=== PATIENT | male | born 1965 ===

== ENCOUNTER 2021-09-07 13:57 | Emergency (ER) | payer OTHER ==
[~2021-09-07] VITALS: Ht 170.2 cm; Wt 55.8 kg
[2021-09-07 14:01] VITALS: BP 138/65
--- NOTE | 2021-09-07 14:12 | NUR ---
PT AMBULATED TO ER BED 3
--- NOTE | 2021-09-07 14:53 | NUR ---
55 Y/O MALE BIB SELF C/O CELLULITIS TO RIGHT THIGH X 1 DAY. INFLAMMATION AND REDNESS NOTED TO RIGHT ANTERIOR THIGH. . PT STATES 7/10 ACHING PAIN ALL OVER BODY. SMALL DEPOSITS OF CALCIUM NOTED ALL OVER BODY, PINK SPOTS ALL OVER BODY. DENIES FEVER, CHILLS. DENIES MEDICATIONS PRIOR TO ARRIVAL. PMH: SCHLERODERMA, HEART-RELATED ISSUES MEDS: PLAVIX, NIFEDIPINE, ACYCLOVIR, SIDENAFIL, TRAZODONE, OMPERAZOLE, ENALAPRIL, NORCO, TEMAZEPAM, MAG ALLERGIES: ZOLEDRONIC ACID, METHOTREXATE, TOCILIZUMAB SX: 2 STENTS 04/2020;
[2021-09-07] MEDS ORDERED: KEFSUS PO (15:26)
[2021-09-07] MEDS ORDERED: SULF-59 PO (15:26)
--- NOTE | 2021-09-07 16:07 | NUR ---
Patient discharged with v/s stable. Written and verbal after care instructions given and explained. Patient alert, oriented and verbalized understanding of instructions. Ambulatory with steady gait. All questions addressed prior to discharge. ID band removed. Patient advised to follow up with PMD. Rx of KELFEX, BACRTIM DS given. Patient educated on indication of medication including possible reaction and side effects. Opportunity to ask questions provided and answered.
== END 2021-09-07 16:07 | disposition home or self-care (01) ==
LOC: MED 13:57
DX: L03.115 Cellulitis of right lower limb (principal); Z95.5 Presence of coronary angioplasty implant and graft; Z79.899 Other long term (current) drug therapy
CPT/HCPCS: 99283

== ENCOUNTER 2022-04-08 12:39 | Inpatient (IN) | payer OTHER ==
[~2022-04-08] VITALS: Ht 170.2 cm; Wt 56.4 kg
[~2022-04-08 12:39] MED LIST: KEFSUS PO; SULF-59 PO
[2022-04-08 13:05] VITALS: BP 137/68
--- NOTE | 2022-04-08 13:45 | NUR ---
Note undone in EDM - 04/08/22 at 1938 by PHSEP 56YO MALE PT C/O INCREASED SHARP 10/10 TRELL LOWER EX PAIN XTODAY. PRESENTS WITH MULTIPLE ULCERS BELOW KNEES, LARGEST NOTED TRELL BEHIND LEGS AND L HEEL. MILD ACTIVE DRAINAGE . COOL TO TOUCH, REDDENED SKIN NOTED AROUND ULCERS . STATES HAVING WEEKLY WOUND CARE W/ INITIAL ONSET BEING IN MAY 2021. DENIES N/V/D, CHEST PAIN , FEVER , CHILLS OR SOB. NON AMBUALTORY AT THIS TIME DUE TO PAIN, NORMALLY AMULATORY W/O ASSIST. PT AAOX4, RESPIRATIONS EVEN AND UNLABORED. ON PLAN EXAMINER. HX: SCLERODERMA NKA
--- NOTE | 2022-04-08 13:45 | NUR ---
56YO MALE PT C/O INCREASED SHARP 10/10 TRELL LOWER EX PAIN XTODAY. PRESENTS WITH MULTIPLE ULCERS BELOW KNEES, LARGEST NOTED TRELL BEHIND LEGS AND L HEEL. MILD ACTIVE DRAINAGE . COOL TO TOUCH, REDDENED SKIN NOTED AROUND ULCERS . STATES HAVING WEEKLY WOUND CARE W/ INITIAL ONSET BEING IN MAY 2021. DENIES N/V/D, CHEST PAIN , FEVER , CHILLS OR SOB. NON AMBUALTORY AT THIS TIME DUE TO PAIN, NORMALLY AMULATORY W/O ASSIST. PT AAOX4, RESPIRATIONS EVEN AND UNLABORED. ON CALENDER LET OFF OPERATOR. HX: SCLERODERMA
--- NOTE | 2022-04-08 14:11 | NUR ---
PT WHEELCHAIR ASSISTED TO ROOM 5
[2022-04-08 14:24] LABS: BASOPHILS % (AUTO) 0.3 % (0.0-2.0); EOSINOPHILS # (AUTO) 0.4 K/uL (0-0.4); EOSINOPHILS % (AUTO) 2.5 % (0.0-4.0); HEMATOCRIT 28.8 % (36-52); HEMOGLOBIN 9.4 g/dL (12.0-18.0); LYMPHOCYTES # (AUTO) 1.3 K/uL (2.0-11.5); LYMPHOCYTES % (AUTO) 8.5 % (20.5-51.1); MEAN CORPUSCULAR HEMOGLOBIN 28 pg (27-31); MEAN CORPUSCULAR HGB CONC 33 g/dL (33-37); MEAN CORPUSCULAR VOLUME 84.5 fL (80-94); NEUTROPHILS # (AUTO) 13.1 K/uL (1.8-7.7); NEUTROPHILS % (AUTO) 82.7 % (42.2-75.2); PLATELET COUNT (AUTO) 614 K/uL (140-450); RED CELL DISTRIBUTION WIDTH 15.5 % (11.6-13.7); WHITE BLOOD COUNT (AUTO) 15.9 K/uL (4.8-10.8)
--- NOTE | 2022-04-08 14:30 | NUR ---
56/M PRESENTS TO ED WITH C/O BILATERAL LEG WOUNDS, STATES WOUNDS HAVE BEEN ONGOING AND HAS BEEN TREATED WITH "MANY ANTIBIOTICS" BUT STATES THEY ARE NOT HEALING. PATIENT REPORTS WORSENING PAIN TODAY, DENIES RECENT INJURY OR TRAUMA, PATIENT WITH UNSTEADY GAIT UPON ARRIVAL D/T PAIN.
--- NOTE | 2022-04-08 14:35 | NUR ---
XRAY AT BEDSIDE
[2022-04-08 14:42] LABS: ALBUMIN 2.8 g/dL (3.4-5.0); ANION GAP 13.7 (8-16); CARBON DIOXIDE 28.8 mmol/L (21-32); POTASSIUM 4.5 mmol/L (3.5-5.1); TOTAL BILIRUBIN 0.2 mg/dL (0.0-1.0)
[2022-04-08] MEDS ORDERED: VANCOMYCIN 1GM/DEXT 5% PREMIX 200 ML IV ONE (14:55)
[2022-04-08] MEDS ORDERED: MORPHINE SULFATE 4 MG/ML SYR IVP ONE (14:55)
[2022-04-08] MEDS ORDERED: VANCOMYCIN PER PHARMACY MC PRN ×2 (14:55→16:15)
[2022-04-08] MEDS ORDERED: ONDANSETRON 4 MG/2 ML VIAL ONE (15:20)
[2022-04-08] MEDS ORDERED: ONDANSETRON 4 MG/2 ML VIAL IVP ONE ×2 (15:25)
--- NOTE | 2022-04-08 15:52 | NUR ---
pt's wound dressed with xeroform gauze pads and wrapped with 4" guaze rolls x3. PA notified.
[2022-04-08] MEDS ORDERED: VANCOMYCIN 1,000 MG VIAL ONE (16:07)
[2022-04-08] MEDS ORDERED: POTASSIUM CHLORIDE 10 MEQ TABER PO PRN (16:15)
[2022-04-08] MEDS ORDERED: KCL 20 MEQ/WATER INJ PREMIX 200 ML IV PRN (16:15)
[2022-04-08] MEDS ORDERED: HYDROcodone/APAP 5/325 MG 1 TAB TAB PO PRN (16:15)
[2022-04-08] MEDS ORDERED: ACETAMINOPHEN 325 MG TAB PO PRN (16:15)
[2022-04-08] MEDS ORDERED: ONDANSETRON 4 MG/2 ML VIAL IVP PRN (16:15)
[2022-04-08] MEDS ORDERED: MAG SULF 2000 MG/WATER PREMIX 50 ML IV PRN (16:15)
[2022-04-08] MEDS ORDERED: SILD20TA13 PO (16:18)
[2022-04-08] MEDS ORDERED: OMEP40EC23 PO (16:18)
[2022-04-08] MEDS ORDERED: TRAZ-471 PO (16:18)
[2022-04-08] MEDS ORDERED: ACYC-276 PO (16:18)
[2022-04-08] MEDS ORDERED: NIFE60TE79 PO (16:18)
[2022-04-08] MEDS ORDERED: MAGN250T22 PO (16:23)
[2022-04-08] MEDS ORDERED: TEMA30CA12 PO (16:23)
[2022-04-08] MEDS ORDERED: [UNRECOGNIZED DRUG - CODE] PO (16:23)
[2022-04-08] MEDS ORDERED: CHOL50005 PO (16:23)
[2022-04-08] MEDS ORDERED: [UNRECOGNIZED DRUG - CODE] PO (16:23)
[2022-04-08] MEDS ORDERED: ENAL10TA51 PO (16:23)
[2022-04-08] MEDS ORDERED: FENO145T26 PO (16:25)
[2022-04-08] MEDS ORDERED: cefTRIAXone 1,000 MG VIAL ONE (16:50)
[2022-04-08] MEDS: NACL 0.9% 1,000 ML IV SCH (17:03)
--- NOTE | 2022-04-08 19:30 | NUR ---
REPORT GIVEN TO ROLANDO MELENDREZ. TRANSFER OF CARE AT THIS TIME
[2022-04-08] MEDS: VANCOMYCIN HCL 1.25 GM in DEXTROSE 5% 250 ML IV SCH (19:35)
--- NOTE | 2022-04-08 20:03 | NUR ---
ATEMPTED TO GIVE REPORT RN UNABLE TO TAKE REPORT AT THIS TIME
--- NOTE | 2022-04-08 20:45 | NUR ---
REPORT HAS BEEN CALLED TO [facility] WAITING ON TECH TO TRANSPORT PT TO NEW ROOM
--- NOTE | 2022-04-08 20:47 | NUR ---
Patient will be admitted to care of DR. LUIS. Admited to med surg. Will go to room 119B. Belongings list completed. Report to PARVIN Pop. pt understands need for admission. all questions or concerns have been addressed.
--- NOTE | 2022-04-08 21:10 | NUR ---
RECEIVED PT FROM ER @ 2109. PT WAS BROUGHT IN FROM ED ON A GURNEY. PT IS AMBULATORY, UPPER EXTREMITIES/HAND CONSTRICTED. PT HAS GENERALIZED RASHES ALL OVER HIS BODY. PT HAS VANCOMYCIN RUNNING 2 100/HR VIA HANSA 22G AND IV FLUIDS 2 80/HR. PT HAS BL CALF WOUNDS COVERED WITH WHITE GUAZE. PT MADE COMFORTABLE, GAVE PAIN MEDICATIONS AND AMBIEM FOR SLEEP.
[2022-04-08] MEDS: HYDROcodone/APAP 10/325 MG 1 TAB TAB PO PRN (21:48)
[2022-04-08] MEDS: ZOLPIDEM 5 MG TAB PO PRN (21:57)
[2022-04-09 02:48] VITALS: BP 155/84
[2022-04-09] MEDS: NACL 0.9% 1,000 ML IV SCH ×2 (04:45→17:15)
[2022-04-09] MEDS: HYDROcodone/APAP 10/325 MG 1 TAB TAB PO PRN ×3 (04:57→15:28)
[2022-04-09 05:58] LABS: ANION GAP 16.5 (8-16); CARBON DIOXIDE 25.7 mmol/L (21-32); POTASSIUM 4.2 mmol/L (3.5-5.1)
[2022-04-09 06:02] LABS: BASOPHILS # (AUTO) 0.1 K/uL (0.00-0.22); BASOPHILS % (AUTO) 0.5 % (0.0-2.0); EOSINOPHILS # (AUTO) 0.3 K/uL (0-0.4); EOSINOPHILS % (AUTO) 2.4 % (0.0-4.0); HEMATOCRIT 28.2 % (36-52); HEMOGLOBIN 9.1 g/dL (12.0-18.0); LYMPHOCYTES # (AUTO) 1.1 K/uL (2.0-11.5); LYMPHOCYTES % (AUTO) 8.6 % (20.5-51.1); MEAN CORPUSCULAR HEMOGLOBIN 28 pg (27-31); MEAN CORPUSCULAR HGB CONC 32 g/dL (33-37); MEAN CORPUSCULAR VOLUME 85.1 fL (80-94); MONOCYTES # (AUTO) 0.8 K/uL (0.8-1.0); MONOCYTES % (AUTO) 6.1 % (1.7-9.3); NEUTROPHILS # (AUTO) 10.8 K/uL (1.8-7.7); NEUTROPHILS % (AUTO) 82.4 % (42.2-75.2); PLATELET COUNT (AUTO) 574 K/uL (140-450); RED BLOOD CELL COUNT(AUTO) 3.31 MIL/uL (4.20-6.10); RED CELL DISTRIBUTION WIDTH 15.3 % (11.6-13.7); WHITE BLOOD COUNT (AUTO) 13.1 K/uL (4.8-10.8)
--- NOTE | 2022-04-09 07:35 | NUR ---
RECEIVED PT FROM NIGHT RN, PT IS AWAKE, ALERT AND ORIENTED, LYING ON THE BED WITH SIDE RAILS UP AND CALL LIGHT WITHIN REACH, PT IS ON ROOM AIR, WITH MULTIPLE WOUNDS NOTED ON THE ARMS AND LEGS, IV LINE NOTED ON THE RIGHT UPPER ARM G. 20 WITH NS INFUSING AT 80ML/HR, NO SIGN OF DISTRESS NOTED AND WILL CONTINUE TO MONITOR PT.
[2022-04-09 08:00] VITALS: BP 145/76
[2022-04-09] MEDS: ENOXAPARIN 40 MG/0.4 ML SYR SUBQ SCH (09:00)
[2022-04-09] MEDS ORDERED: CALCIUM GLUCONATE 10% 1,000 MG in NACL 0.9% 50 ML IV ONE (09:20)
[2022-04-09] MEDS ORDERED: SODIUM BICARBONATE 4.2% 5 MEQ/10 ML SYR IV ONE (09:20)
[2022-04-09] MEDS ORDERED: INSULIN REGULAR, HUMAN 100 UNIT/ML VIAL IVP ONE (09:20)
[2022-04-09] MEDS ORDERED: DEXTROSE 50% 50 ML SYR IVP ONE (09:20)
[2022-04-09] MEDS ORDERED: ALBUTEROL 0.083% 2.5 MG/3 ML NEBU INH ONE (09:54)
--- NOTE | 2022-04-09 10:45 | NUR ---
WOUND CARE NOTE: WOUND ASSESSMENT AND WOUND CARE DONE WITH PRIMARY RN JEANINE. PT. IS AAX4 PT. ADMITTED WITH GENERAL SKIN RASHES AND BLE ULCERS. PER PT. HE HAS DX OF STRIATUS FOR 16 YEARS AND ONLY START LAST YEAR HIS BLE START WITH LESIONS AND ULCER. EXPLAIN TO PT. BOTH LEGS WOUNDS ARE BROWN MOIST AND REQUIRE SURGEON CONSULT FOR WOUND CLEANSING. PER PT. HE GOES TO [facility] WEEKLY AND DAILY WOUND CARE NURSE TO DO WOUND DRESSING CHANGE AND LIKE TO CONTINUE SILVER ALGINATE WITH FOAM DRESSING. PT IS ABLE TO TURN AND REPOSITION, LIFT UP BLE. POC DISCUSSED WITH PRIMARY RN. PT. IS KNOWLEDGE OF HIS WOUND CARE, PER PT. NO SURGEON CONSULT, NO DEBRIDEMENT HERE, WILL FOLLOW HIS OWN WOUND CARE DOCTOR. PER PT." I AM HERE FOR PAIN MEDICATION" PER PRIMARY RN SHE WILL CONTACT PRIMARY PHYSICIAN. -LLE STRIATUS LESIONS/ULCER UN-STAGEABLE [id number] CIRCUMFERENCE AREA WOUND BED 80% BROWN ESCHAR AND 20% MOIST YELLOW SLOUGH TISSUE, NO ODOR, WOUND EDGE FLAT, MANJIT-WOUND SKIN DRY CALCIFIED SCABS/HEALED LESIONS, PAIN 3/10 -RLE STRIATUS LESIONS/ULCER UN-STAGEABLE [id number] CIRCUMFERENCE AREA TO RIGHT MEDIAL ANKLE WOUND BED 100% BROWN ESCHAR TISSUE, NO ODOR, WOUND EDGE FLAT, MANJIT-WOUND SKIN DRY CALCIFIED SCABS/HEALED LESIONS, PAIN 2/10 RECOMMENDATIONS: -CLEANSE BLE WOUNDS WITH NS, PAT DRY, APPLY SILVER ALGINATE DRESSING AND COVER WITH FOAM DRESSING WRAP WITH KERLIX ROLL, SECURED WITH TAPE. 3X/WEEK ON
--- NOTE | 2022-04-09 10:51 | NUR ---
PATIENT HAS BEEN SCREENED AND CATEGORIZED MODERATE NUTRITION RISK. PATIENT WILL BE SEEN WITHIN 3-5 DAYS OF ADMISSION. 04/11/[address]
[2022-04-09 16:00] VITALS: BP 153/69
--- NOTE | 2022-04-09 16:04 | NUR ---
DC PLANNING SW MET WITH PT AT BEDSIDE TO COMPLETE ASSESSMENT. PT REPORTS RESIDING ON A THIRD FLOOR APT, ALONE, AT THE ADDRESS LISTED ON FILE. PT REPORTS APARTMENT [facility] IS ADA COMPLIANT AND HAS ALL NECESSARY EQUIPMENT NEEDED. [facility] HAS ELEVATOR. PT IDENTIFIES PAULETTE CHUA, MOTHER, [phone] EMERGENCY CONTACT. PT DENIED AD IN PLACE AND DECLINED AD OFFERED BY SW. PT REPORTS MEETING WITH PCP REGULARLY, LAST VISIT; 2 MONTHS AGO. PT REPORTS UPCOMING APPT SCHEDULED FOR APR 22. PT REPORTS MEDICATION COMPLIANCE AND DENIES BARRIERS IN ACCESS TO NEEDED MEDICATIONS. PT REPORTS RECEIVING MEDICATION FROM [facility] IN [place], WHEN NEEDED. PT REPORTS UTILIZING POWER WC AND OCCASIONAL USE OF FWW. PT REPORTS BATHCHAIR AT HOME AND LIFTED TOILET SEAT AND ADJUSTABLE BED AT HOME. PT DENIES HX OF DIABETES AND DIALYSIS TX, SNF PLACEMENT. PT REPORTS RECEIVING HOME HEALTH WITH [facility] FOR WOUND CARE AND RECEIVES WOUND CARE WITH [facility] EVERY THREE WEEKS, NEXT APPT APR 23. PT REPORTS DC PLAN IS TO RETURN HOME ONCE MEDICALLY STABLE. PT REPORTS HE DROVE HIMSELF TO HOSPITAL HOWEVER, IF NEEDED, MOM CAN PROVIDE TRANSPORTATION, WHEN MEDICALLY STABLE .SW INQUIRED ON ADDITIONAL RESOURCES NEEDED, PT DECLINED. Addendum: 04/09/22 at 1606 by Ann-Marie COBOS Amended: Links added.
[2022-04-09] MEDS: VANCOMYCIN HCL 1.25 GM in DEXTROSE 5% 250 ML IV SCH (17:00)
--- NOTE | 2022-04-09 17:10 | NUR ---
PT REQUESTED FOR HIS IV ANTIBIOTIC TO BE PAUSED AND HE WANTED TO BE SEATED ON THE CHAIR FIRST AND EAT.
[2022-04-09] MEDS ORDERED: oxyCODONE/APAP 5/325 MG 1 TAB TAB PO PRN (18:10)
--- NOTE | 2022-04-09 18:30 | NUR ---
PT IS EATING HIS DINNER NOW ON THE CHAIR AND DOES NOT WANT HIS IVF AND ANTIBIOTIC TO BE INFUSED UNTIL HE IS ON THE BED.
--- NOTE | 2022-04-09 19:47 | NUR ---
ENDORSED PT TO NIGHT RN FOR CONTINUITY OF CARE, RN WAS INFORMED TO INFUSE IV ANTIBIOTIC ONCE PT AGREES ALREADY AND IS FINISH EATING AND ON THE BED.
--- NOTE | 2022-04-09 20:00 | NUR ---
RECEIVED IN BED IV RESTARTED AND VANCOMYCIN INFUSING ASSESSM,ENT COMPLETED PLAN OF CARE REVIEWED ENDORSES PAIN TO TRELL LEGS WILL MEDICATE ORDERED
[2022-04-09] MEDS: oxyCODONE/APAP 5/325 MG 1 TAB TAB PO PRN (20:53)
[2022-04-09] MEDS ORDERED: SODIUM ZIRCONIUM CYCLOSILICATE 10 GM POWD.PACK PO SCH (21:00)
[2022-04-09] MEDS: ZOLPIDEM 5 MG TAB PO PRN (22:12)
--- NOTE | 2022-04-09 23:00 | NUR ---
CINDYIEN GIVEN PER PT REQUEST NO DISTRESS NOTED WILL CONTINUE TO MONITOR AND ASSESS
--- NOTE | 2022-04-10 01:00 | NUR ---
MARYCHUY ENDORSING PAIN 10/140 AT TRELL LEGS WILL MEDICATE WITH PERCOCET 2 TABS ORDERED
[2022-04-10] MEDS: oxyCODONE/APAP 5/325 MG 1 TAB TAB PO PRN ×3 (01:06→10:18)
[2022-04-10 04:00] VITALS: BP 161/89
[2022-04-10] MEDS: NACL 0.9% 1,000 ML IV SCH (05:09)
[2022-04-10] MEDS: ENOXAPARIN 40 MG/0.4 ML SYR SUBQ SCH (08:57)
--- NOTE | 2022-04-10 08:58 | NUR ---
PT REFUSED LOVENOX PT UPSET AND ENDORSES HE WANTS A PICC LINE AND WILL LEAVE AMA IF HE DOES NOT RECEIVE PICC LINE PT MADE AWARE WOUND CULTURES WERE DONE TO DETERMINE ANTIBIOTIC THERAPY PT UPSET AT THIS TIME WILL CONTINUE TO MONITOR AND ASSESS
[2022-04-10 12:00] VITALS: BP 158/71
[2022-04-10] MEDS ORDERED: ACET-5636 PO ×2 (12:21→13:10)
--- NOTE | 2022-04-10 12:54 | NUR ---
CARE ENDORSED TO RN FOR CONTINUITY OF CARE
--- NOTE | 2022-04-10 13:00 | NUR ---
I RECEIVE REPORT FROM THE CRITICAL CARE NURSE SPECIALIST NURSE PATIENT HAS DISCHARGE ORDER HE NEED TO GO HOME ., THEN I CALL DR LUIS , I CANT DISCHARGE PATIENT DUE DISCHARGE MIDS , HE NEED TO FIX IT , SAID NO DISCHARGE FOR PT , IF HE WANTS TO GO HE CAN SIGN AMA THEN I WENTS TO PT ROOM I INFORMED HIM DC CANCELED , HE INSIST TO GO HOME
[2022-04-10 13:42] VITALS: BP 153/71
--- NOTE | 2022-04-10 14:18 | NUR ---
nurses note : patient sign AMA , HE INSIST TO GO HOME , HE IS A/OX4 , VSS , , I EXPLAIN FOR HIM , HE NEED TO STAY TILL WOUND CULTURE RESULT COME UP , HE SAID I WANTS TO GO AMA , DUE DR HE SAID FOR HIM EARLY PT HAS DISCHARGE ORDER THEN IV , ARM BAND REMOVED , PT ASSISTED TO MAIN LOBBY BY NEURO OPHTHALMOLOGIST .
[2022-04-11] MEDS ORDERED: FOAM DRESSING TP SCH (13:00)
[2022-04-11] MEDS ORDERED: ALGINATE DRESSING MC SCH (13:00)
== END 2022-04-10 14:50 | disposition left against medical advice (07) | DRG 720 ==
LOC: MED 12:39 → MMU 16:14 → MTU 16:14 → OBSVTOIN 16:14 → MTU 19:06
PROVIDERS: ADMIT Internal Medicine; ATTEND Internal Medicine
DX: A41.9 Sepsis, unspecified organism (principal); M34.9 Systemic sclerosis, unspecified; L97.919 Non-pressure chronic ulcer of unspecified part of right lower leg with unspecified severity; E44.0 Moderate protein-calorie malnutrition; L97.929 Non-pressure chronic ulcer of unspecified part of left lower leg with unspecified severity; I25.10 Atherosclerotic heart disease of native coronary artery without angina pectoris; L03.119 Cellulitis of unspecified part of limb; Z88.8 Allergy status to other drugs, medicaments and biological substances; Z68.1 Body mass index [BMI] 19.9 or less, adult
CPT/HCPCS: 36415; 73590; 80048; 80053; 83605; 83735; 84132; 85025; 85651; 86140; 87040; 87070; 87075; 87081; 87205; 94640; 96365; 96375; 96376; 99285; J0696; J1650; J2270; J2405; J3370; J7060; J7613; Q0092